=== PATIENT | female | born 1980 | race African-American/Black ===

== ENCOUNTER → 2017-12-16 | Outpatient (CLI) | payer OTHER | LOC: ULTRA 09:36 | DX: N83.202 Unspecified ovarian cyst, left side (principal); N83.201 Unspecified ovarian cyst, right side; N93.9 Abnormal uterine and vaginal bleeding, unspecified ==

== ENCOUNTER → 2018-08-19 | Outpatient (CLI) | payer OTHER | LOC: RAD 14:10 | DX: R92.2 Inconclusive mammogram (principal); Z80.3 Family history of malignant neoplasm of breast ==

== ENCOUNTER → 2018-09-16 | Outpatient (CLI) | payer OTHER | LOC: RAD 15:41 | DX: M53.3 Sacrococcygeal disorders, not elsewhere classified (principal); M54.5 Low back pain; W19.XXXA Unspecified fall, initial encounter ==

== ENCOUNTER 2019-06-09 06:58 | Day surgery (SDC) | payer OTHER ==
[~2019-06-09] VITALS: Ht 157.5 cm; Wt 72.6 kg
--- NOTE | ~2019-06-09 | O ---
[facility] [place] [address] OPERATIVE REPORT Name: AMALIA MALONE Nicole Room #: DEP [facility].#: [id number] Admission: 06/09/19 ������������������ Attend Phys: Sherry Quiroga, Discharge: 06/09/19 ������������������ Date of : 80 Report #: [id number] THIS REPORT FOR: //name// CC: Napoleon Quiroga DATE OF SERVICE: 06/09/2019 PREOPERATIVE DIAGNOSES: 1. Menorrhagia. 2. Dysmenorrhea. 3. Pelvic pain. POSTOPERATIVE DIAGNOSES: 1. Menorrhagia. 2. Dysmenorrhea. 3. Pelvic pain. 4. Left ovarian cyst. 5. Abdominal pelvic adhesions. OPERATIVE PROCEDURE: Diagnostic laparoscopy. COMPLICATIONS: None. ANESTHESIA: General. PATHOLOGY: None. DESCRIPTION OF PROCEDURE: The patient was taken to the operating room where general anesthesia was administered and found to be adequate. She was then prepped and draped in normal sterile fashion in dorsal lithotomy position. A weighted speculum was placed in the patient's vagina. The anterior lip of the cervix was identified and grasped with a single tooth tenaculum. The uterus was then gently dilated to approximately 9 cm. The VCare uterine manipulator was then passed through the cervix, gently advanced into the uterus and the balloon was inflated. The single tooth tenaculum was removed from the patient's cervix and the VCare cup was fashioned and placed over the cervix. The weighted speculum was then removed from the patient's vagina. Sterile gloves were changed and attention was then turned to the patient's abdomen. A 5 mm infraumbilical incision was made with a scalpel. A 5 mm trocar was passed through this incision under direct visualization of laparoscope. No insertional trauma was identified. A pneumoperitoneum was allowed to accumulate using carbon dioxide gas. Once approximately 3 liters of carbon dioxide gas was infused, the patient was then placed in Trendelenburg position. Survey of the patient's abdomen revealed omental adhesions to the left pelvic and abdominal sidewall. There was a window to the right where a 5 mm incision was made with a [facility] [address] [place] [address] OPERATIVE REPORT Name: AMALIA MALONE Room #: DEP [facility].#: [id number] Admission: 06/09/19 ������������������ Attend Phys: Sherry Quiroga DO Discharge: 06/09/19 ������������������ Date of : 80 Report #: [id number] scalpel in the left lower quadrant of the patient's abdomen. The 5 mm trocar was passed through this incision under direct visualization of laparoscope. No insertional trauma was identified. Further assessment of the patient's pelvis revealed a left ovarian cyst as well as thick omental adhesions to the vesicouterine peritoneum and bladder on the anterior aspect of the uterus as well as bladder adhesions on the anterior aspect of the uterus. Due to the abdominal and pelvic adhesions, it was decided at this time to discuss with the patient's family the possibility of an open procedure. Therefore, at this time, I exited the operating room to discuss findings with the family. The family agreed to not proceed with an abdominal hysterectomy, but rather abort procedure and discuss future treatment with the patient. Therefore, I reentered the operating room and the pneumoperitoneum was allowed to escape after all instruments were removed from the patient's abdomen. Trocars were removed under direct visualization of laparoscope and incisions were then closed with 4-0 Monocryl. Excellent hemostasis was noted of the incision sites. All instrumentation was removed from the patient's vagina. The patient tolerated the procedure well. Sponge, lap and needle counts were reported as correct. The patient was taken to the recovery room in stable condition. ��������������������������������������������� ���������������������������������������� By: ��������������������������������������������� [id number] Sherry Quiroga DO /nt
[~2019-06-09 06:58] MED LIST: ABILIFY 5 MG TAB5 MG PO; ACETAMINOPHEN-1 EAC1 PO; ADDERALL 20 MG20 MG PO; ALBUTEROL2.5 MG/31 INH; AMBIEN 5 MG TABL5 M1 PO; BREO ELLIPTA 11 EACH INH; BRINTELLIX10 MG PO; EMERGEN-C 1,01000 MG PO; FISH OIL 1,001000 M2 PO; PREDNISONE 10 M10 MG PO; SUMATRIPTA4 MG/0.51 SUBQ; TOPAMAX 100 MG100 MG PO; VENTOLIN HFA 1818 GM INH; VITAMIN E400 UNIT PO; XANAX 0.5 MG0.5 MG PO
[2019-06-09 08:09] LABS: HEMOGLOBIN 12.7 gm/dL (12.0-15.0); MCH 28.8 pg (26.0-34.0); MCHC 32.6 g/dL (28.0-37.0); MCV 88.4 fL (80.0-100.0); RBC 4.41 mil/uL (4.20-5.00); RDW 15.1 % (10.5-14.5); WBC 6.4 thou/uL (4.0-11.0)
[2019-06-09 09:39] VITALS: BP 119/70
[2019-06-09] MEDS ORDERED: NORCO 5-325 TA1 EAC1 PO (11:06)
[2019-06-09 11:50] VITALS: BP 119/70
== END 2019-06-09 13:32 | disposition home or self-care (01) ==
LOC: OR 06:58 → TBA 07:22 → OR 09:31
PROVIDERS: Obstetrics & Gynecology
DX: N83.202 Unspecified ovarian cyst, left side (principal); N80.9 Endometriosis, unspecified; N73.6 Female pelvic peritoneal adhesions (postinfective); N94.6 Dysmenorrhea, unspecified; N92.0 Excessive and frequent menstruation with regular cycle; G43.909 Migraine, unspecified, not intractable, without status migrainosus; J45.909 Unspecified asthma, uncomplicated; Z87.891 Personal history of nicotine dependence; K21.9 Gastro-esophageal reflux disease without esophagitis; Z98.890 Other specified postprocedural states; Z98.51 Tubal ligation status; Z79.899 Other long term (current) drug therapy; Z88.0 Allergy status to penicillin; Z88.8 Allergy status to other drugs, medicaments and biological substances; Z79.891 Long term (current) use of opiate analgesic
CPT/HCPCS: 50010; 50101; 50249; 50386; 50400; 50455; 50555; 50900; 51489; 51687; 52265; 52287; 53307; 54118; 56525; 56526; 62110; 62900; 70005

== ENCOUNTER 2019-06-16 10:42 | Inpatient (IN) | payer OTHER ==
[~2019-06-16] VITALS: Ht 157.5 cm; Wt 70.3 kg
[2019-06-16] VITALS (9 sets, daily range): BP systolic 97–135; BP diastolic 64–76
--- NOTE | ~2019-06-16 | O ---
[facility] [place] [address] [place] [address] OPERATIVE REPORT Name: AMALIA MALONE Nicole Room #: 417-I [facility] IN ..#: [id number] Admission: 06/16/19 Attend Phys: Sherry Quiroga DO Discharge: 06/18/19 Date of : 80 Report #: [id number] THIS REPORT FOR: //name// CC: Napoleon Quiroga DATE OF SERVICE: 06/16/2019 PREOPERATIVE DIAGNOSES: 1. Menorrhagia. 2. Dysmenorrhea. 3. Pelvic pain. 4. Left ovarian cyst. 5. Abdominal pelvic adhesions. POSTOPERATIVE DIAGNOSES: 1. Menorrhagia. 2. Dysmenorrhea. 3. Pelvic pain. 4. Left ovarian cyst. 5. Abdominal pelvic adhesions. OPERATIVE PROCEDURES: Total abdominal hysterectomy with left salpingo-oophorectomy and lysis of adhesions. SURGEON: Sherry Quiroga DO MANAGER MOUNTAIN: Maggie Caba MD ANESTHESIA: General. PATHOLOGY: Uterus with cervix, left fallopian tube and ovary. COMPLICATIONS: None. DESCRIPTION OF PROCEDURE: The patient was taken to the operating room where general anesthesia was administered and found to be adequate. She was then prepped and draped in normal sterile fashion in supine position. A Pfannenstiel skin incision was made in the patient's abdomen approximately 2 cm above the symphysis pubis through her prior incision and carried through to the underlying layer of fascia. The fascia was nicked in the midline. The incision was carried laterally with Dela Cruz scissors. The superior aspect of the fascial incision was grasped with Kendrick clamps, elevated and the underlying rectus muscle dissected off bluntly as well as with Dela Cruz scissors. Attention was then turned to the inferior aspect of this incision, which in a similar fashion was grasped with Kendrick clamps, elevated and the underlying rectus muscle dissected [facility] [address] [place] [address] OPERATIVE REPORT Name: AMALIA MALONE Room #: 417-I [facility] IN [facility]#: [id number] Admission: 06/16/19 Attend Phys: Sherry Quiroga DO Discharge: 06/18/19 Date of : 80 Report #: [id number] off bluntly as well as with Dela Cruz scissors. The rectus muscles were in the midline. The peritoneum was tented upwards and entered sharply with Metzenbaum scissors. The peritoneal incision was then extended superiorly and inferiorly with good visualization. Omental adhesions on the left abdominal sidewall were then lysed using the handheld LigaSure, followed by adhesions to the anterior aspect of the uterus as well as the vesicouterine peritoneum. Excellent hemostasis was noted after lysis of all adhesions. The Marcus retractor was then placed in the patient's abdomen and the bladder blade was placed and attached to the Marcus. Survey the patient's abdomen revealed a normal appearing uterus, normal appearing right ovary, fallopian tubes that had previously been transected by tubal ligation, left ovary with an ovarian cyst and possibly small amount of endometriosis implant on the left fallopian tube remnant near the cornua of the uterus. The right ovary was then retracted to the lateral aspect of the pelvis and the uteroovarian ligament followed by the round ligament were transected without complication. Next, the broad ligament was transected and the vesicouterine peritoneum identified, tented upwards and the bladder reflection was created from the right aspect of the pelvis across to the central part of the uterus. Attention was then turned to the patient's left pelvis where the infundibulopelvic ligament was transected after retracting the fallopian tube and ovary medially. This was followed by the transection of the round ligament as well as the left broad ligament. Again, the vesicouterine peritoneum was identified, tented upwards and undermined with Metzenbaum scissors and transected. The bladder was then bluntly as well as sharply dissected off the anterior aspect of the uterus until the cervix was visualized. The uterine arteries and cardinal ligament complexes were then clamped with straight Heaneys, transected and tied with 2-0 Vicryl. Z-clamps were then placed across the remainder of the cervical pedicle and at the cervicovaginal junction. The cervicovaginal junction was then transected across the top of the Heaneys. The vaginal cuff was then tied with 3 interrupted sutures using 0 Vicryl. Excellent hemostasis was noted of the vaginal cuff ____ the posterior aspect of the bladder ____. Bovie cautery was used as well as the Heather to obtain excellent hemostasis. Again, all pedicles were noted to be hemostatic. The ____ as well as the fascia were then closed by Dr. Caba and the subcutaneous tissue was then reapproximated using 3-0 plain and the skin was closed in a subcuticular stitch using 4-0 Monocryl. The patient tolerated the procedure well. Sponge, lap and needle counts were reported as correct and the patient was taken to the recovery room in stable condition. By: [id number] Sherry Quiroga DO /nt
[~2019-06-16 10:42] MED LIST changes: +NORCO 5-325 TA1 EAC1 PO
[2019-06-16 11:16] LABS: URINE BILIRUBIN NEGATIVE (Negative); URINE BLOOD TRACE (Negative); URINE CLARITY CLEAR; URINE COLOR YELLOW; URINE GLUCOSE-RANDOM* NEGATIVE (Negative); URINE KETONES NEGATIVE (Negative); URINE LEUKOCYTES NEGATIVE (Negative); URINE NITRITE NEGATIVE (Negative); URINE PROTEIN (DIPSTICK) NEGATIVE (Negative); URINE SPECIFIC GRAVITY 1.015 (1.005-1.035); URINE UROBILINOGEN 0.2 E.U./dl (0.2-1.0)
[2019-06-16 11:22] LABS: CREATININE 0.8 mg/dL (0.6-1.0)
[2019-06-17 00:11] VITALS: BP 119/67
[2019-06-17 03:40] VITALS: BP 114/60
[2019-06-17 05:54] LABS: HEMATOCRIT 37.1 % (37.0-47.0); HEMOGLOBIN 12.3 gm/dL (12.0-15.0); MCH 29.2 pg (26.0-34.0); MCHC 33.3 g/dL (28.0-37.0); MCV 87.7 fL (80.0-100.0); RBC 4.23 mil/uL (4.20-5.00); RDW 15.3 % (10.5-14.5); WBC 14.6 thou/uL (4.0-11.0)
[2019-06-17 06:01] LABS: CALCIUM 8.5 mg/dL (8.5-10.1); CREATININE 0.7 mg/dL (0.6-1.0); POTASSIUM 4.3 mmol/L (3.5-5.1)
[2019-06-17 08:20] VITALS: BP 124/64
[2019-06-17 18:07] VITALS: BP 126/74
[2019-06-17 20:30] VITALS: BP 112/70
[2019-06-18 03:28] VITALS: BP 175/74
[2019-06-18 03:37] VITALS: BP 117/74
[2019-06-18 09:51] VITALS: BP 109/61
[2019-06-18] MEDS ORDERED: HYDROCODON-ACE1 EAC7 PO (10:42)
[2019-06-18 11:34] VITALS: BP 109/61
--- NOTE | 2019-06-19 11:07 | PATH ---
[facility] [place] [address] PATHOLOGY RPT PROCEDURE Name: AMALIA PADILLA Nicole Room #: 417-I [facility] IN .R.#: [id number] Admission: 06/16/19 Date of : 80 Discharge: 06/18/19 Report #: [id number] Path Case #: [id number] LCA Accession Number: [id number] . 01 Material submitted: . uterus - UTERUS WITH CERVIX AND LEFT TUBE AND OVARY . 01 Clinical history: . Dysfunctional uterine bleeding, dysmenorrhea . 02 Diagnosis: Uterus and left ovary and fallopian tube, hysterectomy and left salpingo-oophorectomy: - Cervix with mild chronic inflammation and squamous metaplasia. - Secretory phase endometrium. - Myometrium with leiomyomata, up to 0.8 cm. - Serosal surface with no pathologic diagnosis. - Left ovary with hemorrhagic corpus luteum cyst. - Left fallopian tube and right fallopian tube stump with no significant histopathologic diagnosis. (CORDELL:milagros; 06/19/2019) QMS/06/19/2019 . 02 Electronically signed: . Larry Houston MD, Pathologist NPI- [id number] . 01 Gross description: . The specimen is received in formalin, labeled "Amalia Padilla, uterus with cervix and left tube and ovary" and consists of a 67 g uterus with attached cervix measuring 8.3 x 4.8 x 3.4 cm. Attached is the right fallopian tube stump, nonfimbriated, measuring 2.0 cm in length and 0.5 cm in diameter. Also attached is the left tubo-ovarian complex consisting of a fimbriated fallopian tube (4.5 cm in length and up to 0.5 cm in diameter) attached to a 10 g ovary (3.8 x 2.9 x 1.7 cm). The uterine serosa is lindsay-brown with hemorrhage and attached yellow adipose tissue on the anterior aspect (3.5 x 2.3 cm). The slitlike 0.6 cm cervical os is surrounded by pink-lindsay cervical tissue, however mucosa grossly appears absent. It is bivalved revealing a corrugated endocervical canal measuring 3.5 cm in length. Endometrial cavity is triangular measuring 3.8 cm in length and up to 2.6 cm in width which is lined by a red-pink endometrium measuring 0.1-0.2 cm. The myometrium is pink-lindsay measuring up to 2.0 cm with a few anterior and posterior subserosal and intramural nodules measuring up to 0.8 cm. These nodules show homogeneous white whorled cut surfaces without hemorrhage, necrosis, or calcifications. No additional masses or lesions are identified. . [address] [address] PATHOLOGY RPT PROCEDURE Name: AMALIA PADILLA N Room #: 417-I [facility] IN ..#: [id number] Admission: 06/16/19 Date of : 80 Discharge: 06/18/19 Report #: [id number] Path Case #: [id number] Both fallopian tube segments are purple-bliss with sectioning revealing a well-defined lumen and no gross lesions. The left fallopian tube shows evidence of a previous ligation. The left ovary is cerebriform lindsay-brown and hemorrhagic. Sectioning reveals a hemorrhagic luteum as well as a few fluid-filled unilocular cysts which measure up to 0.5 cm. Guidance Secretary sections are submitted as follows: . A1: Anterior cervix A2: Posterior cervix A3: Anterior endomyometrium A4: Posterior endomyometrium A5: Serosa with attached adipose tissue A6: Nodules A7: Right fallopian tube stump A8: Left fallopian tube A9-A10: Left ovary (SDY; 06/17/2019) /SYU . 02 Pathologist provided ICD-10: N72, N87.9, D25.9, N83.12 . 02 CPT . 257595 Specimen Comment: A courtesy copy of this report has been sent to Specimen Comment: [phone], , . Specimen Comment: Report sent to ,DR MAGUIRE / DR DALY Performed at: [address], [place], [place] [id number] MD Carlos Mccray MD Phone: [phone] Performed at: [address] [id number] MD Cynthia Pierce MD Phone: [phone]
== END 2019-06-18 12:01 | disposition home or self-care (01) | DRG 743 ==
LOC: PRE 10:42 → TBA 10:44 → 4E 10:44 → PRE 11:57 → 4E 15:48
PROVIDERS: ADMIT Obstetrics & Gynecology
DX: N92.0 Excessive and frequent menstruation with regular cycle (principal); N94.6 Dysmenorrhea, unspecified; N83.209 Unspecified ovarian cyst, unspecified side; N73.6 Female pelvic peritoneal adhesions (postinfective); Z79.899 Other long term (current) drug therapy; Z88.6 Allergy status to analgesic agent; Z88.0 Allergy status to penicillin; F41.9 Anxiety disorder, unspecified
CPT/HCPCS: 10783; 50010; 50093; 50101; 50386; 52287; 54118; 56524; 56525; 56526; 62110; 62900; 70005

== ENCOUNTER → 2019-09-30 | Outpatient (CLI) | payer OTHER ==
[~2019-09-30] MED LIST changes: +HYDROCODON-ACE1 EAC7 PO
== END ==
LOC: ULTRA 09-22 09:49
DX: R10.9 Unspecified abdominal pain (principal)

== ENCOUNTER 2019-12-01 06:21 | Day surgery (SDC) | payer OTHER ==
[~2019-12-01] VITALS: Ht 157.5 cm; Wt 75.3 kg
--- NOTE | ~2019-12-01 | O ---
[facility] [place] [address] [place] [address] OPERATIVE REPORT Name: AMALIA MALONE Room #: DEP [facility].#: [id number] Admission: 12/01/19 Attend Phys: Sherry Quiroga DO Discharge: 12/01/19 Date of : 80 Report #: [id number] THIS REPORT FOR: cc: Napoleon Rios James A. DO Farris, Kari C. DO ~ CC: Napoleon Quiroga PREOPERATIVE DIAGNOSES: 1. Pelvic pain. 2. NOE-2 of the cervix. POSTOPERATIVE DIAGNOSES: 1. Pelvic pain. 2. NOE-2 of the cervix. OPERATIVE PROCEDURE: Laparoscopic trachelectomy. SURGEON: Dr. Sherry Quiroga. ANESTHESIA: General. INTRAVENOUS FLUIDS: 1200 mL. URINE OUTPUT: 100 mL. ESTIMATED BLOOD LOSS: 20 mL. COMPLICATIONS: None. DESCRIPTION OF PROCEDURE: The patient was taken to the operating room where general anesthesia was administered and found to be adequate. She was then prepped and draped in normal sterile fashion in dorsal lithotomy position. A weighted speculum was placed in the patient's vagina. The anterior lip of the cervix was identified and grasped with single tooth tenaculum. The VCare uterine manipulator was placed into the cervix. The balloon was inflated slightly and the VCare cup was placed over the cervix and fashioned in place after the single tooth tenaculum was removed from the patient's cervix. The weighted speculum was removed from the patient's vagina. A Hummel catheter was placed in the patient's bladder and the bladder was drained of urine. Sterile gloves were changed and attention was then turned to the patient's abdomen. A 5 mm infraumbilical incision was made with scalpel. A 5 mm trocar was passed through this incision under direct visualization of laparoscope. No insertional trauma was identified. The pneumoperitoneum was allowed to accumulate using carbon dioxide gas, was approximately 2 liters of carbon dioxide gas was infused. The patient was placed in Trendelenburg position. [facility] [address] [place] [address] OPERATIVE REPORT Name: MALONEAMALIA Room #: DEP [facility]..#: [id number] Admission: 12/01/19 Attend Phys: Sherry Quiroga DO Discharge: 12/01/19 Date of : 80 Report #: [id number] pneumoperitoneum was accumulating fluid, the patient was placed in Trendelenburg and a second incision was placed in the patient's left lower quadrant with a scalpel. An 11 mm trocar was placed through this incision under direct visualization of the laparoscope and no insertional trauma was identified. A survey of the patient's abdomen revealed slight tethering of the appendix to the abdominal side wall and the right ovarian cyst. The ovarian cyst was aspirated until clear fluid was noted and the adhesion of the appendix was released with Sonicision device. Excellent hemostasis was noted. Attention was then turned to the patient's cervix, where the vesicouterine peritoneum was identified and dissected with laparoscopic Kitner off the cervix. Once this was performed, a colpotomy was performed around the VCare cup and the cervix was delivered vaginally. Excellent hemostasis was noted. After the cervix was delivered into the vagina and excellent hemostasis was noted, using an EndoStitch, a series of interrupted stitches of 0 Vicryl were placed to reapproximate the anterior and posterior vaginal mucosa as well as the anterior and posterior pelvic peritoneum. Excellent hemostasis was noted of the vaginal cuff. The pelvis was irrigated. All irrigant was removed. The pneumoperitoneum was allowed to escape and all trocars were removed from the patient's abdomen. The fascia of the 11 mm port was closed with 0 Vicryl and the skin was closed in subcuticular stitch using 4-0 Vicryl. The patient tolerated the procedure well. Sponge, lap and needle counts were reported as correct. The specimen was removed from the patient's vagina. The vaginal cuff was noted to be hemostatic vaginally. The patient was taken to the recovery room in stable condition. By: 1155 1224 Sherry Quiroga DO /mitchell
[~2019-12-01 06:21] MED LIST changes: +DEPAKOTE250 MG PO
[2019-12-01 06:38] VITALS: BP 112/69
[2019-12-01] MEDS ORDERED: NORCO 5-325 TA1 EAC1 PO (10:18)
[2019-12-01 10:42] VITALS: BP 112/69
--- NOTE | 2019-12-03 13:08 | PATH ---
[facility] [address] [place] [address] PATHOLOGY RPT PROCEDURE Name: AMALIA PADILLA Room #: DE[facility] [place].#: [id number] Admission: 12/01/19 Date of : 80 Discharge: 12/01/19 Report #: [id number] Path Case #: [id number] LCA Accession Number: [id number] . 01 Material submitted: . cervix - PORTION OF THE CERVIX . 01 Clinical history: . Right lower abdominal pain . 02 Diagnosis: Cervix "portion of cervix, excision": - Mild chronic cervicitis with reactive squamous epithelial hyperplasia with hyperkeratosis and parakeratosis. - There is no evidence of atypia or malignancy. . (SHA:milagros; 12/03/2019) QMS 12/03/2019 0856 Local . 02 Electronically signed: . Kwan Mcgill MD, Pathologist NPI- [id number] . 01 Gross description: . The specimen is received in formalin, labeled "Amalia Padilla, portion of the cervix". Received is a 10 g cervical stump measuring 3.2 x 2.5 x 2.7 cm in greatest dimensions. There is a slight amount of attached vaginal mucosa present measuring 2.0 x 1.1 cm. The 0.7 cm cervical os is surrounded by pink-lindsay, smooth ectocervical mucosa. The specimen cannot be oriented. The specimen is opened to reveal a pale lindsay, smooth endocervical canal measuring 1.4 cm in length which appears to be septated at the superior aspect and cannot be probed. Copywriting Intern sections from the 12:00 and 6:00 aspects are submitted in cassettes A1 and A2. (CAA; 12/01/2019) QAC/QAC 12/01/2019 1811 Local . 02 Pathologist provided ICD-10: N72 . 02 CPT . 954840 Specimen Comment: A courtesy copy of this report has been sent to [phone] Specimen Comment: [phone] Specimen Comment: Report sent to DR DALY Performed at: 01 [place] [address] PATHOLOGY RPT PROCEDURE Name: AMALIA PADILLA Nicole Room #: [facility] [place].R.#: [id number] Admission: 12/01/19 Date of : 80 Discharge: 12/01/19 Report #: [id number] Path Case #: [id number] [address] [facility] [address], [place] [id number] MD Carlos Mccray MD Phone: [phone] Performed at: [address] [id number] MD Cynthia Pierce MD Phone: [phone]
== END 2019-12-01 11:30 | disposition home or self-care (01) ==
LOC: OR 06:21 → TBA 06:21 → OR 06:51
DX: N72 Inflammatory disease of cervix uteri (principal); N83.201 Unspecified ovarian cyst, right side; N87.1 Moderate cervical dysplasia; R10.2 Pelvic and perineal pain; N73.6 Female pelvic peritoneal adhesions (postinfective); J45.909 Unspecified asthma, uncomplicated; G43.909 Migraine, unspecified, not intractable, without status migrainosus; F32.9 Major depressive disorder, single episode, unspecified; F41.9 Anxiety disorder, unspecified; K21.9 Gastro-esophageal reflux disease without esophagitis; Z98.890 Other specified postprocedural states; Z79.899 Other long term (current) drug therapy; Z87.891 Personal history of nicotine dependence; Z98.51 Tubal ligation status; Z88.0 Allergy status to penicillin; Z88.8 Allergy status to other drugs, medicaments and biological substances
CPT/HCPCS: 50010; 50101; 50249; 50386; 50400; 50455; 50555; 50558; 50685; 50900; 50962; 51489; 51687; 52265; 52287; 53307; 54022; 54118; 55326; 56462; 56525; 56526; 56531; 62110; 62900; 70005

== ENCOUNTER → 2019-12-12 | Day surgery (SDC) | payer OTHER ==
[~2019-12-12] MED LIST changes: +NAPROSYN500 MG PO
--- NOTE | ~2019-12-12 | O ---
[facility] [place] [address] [place] [address] OPERATIVE REPORT Name: AMALIA MALONE Room #: REG [facility]..#: [id number] Admission: 12/12/19 Attend Phys: Sherry Quiroga DO Discharge: Date of : 80 Report #: [id number] THIS REPORT FOR: cc: Napoleon Rios James A. DO Farris, Kari C. DO ~ CC: Napoleon Quiroga DATE OF SERVICE: 12/12/2019 PREOPERATIVE DIAGNOSIS: Dehiscence of the vaginal cuff. POSTOPERATIVE DIAGNOSIS: Dehiscence of the vaginal cuff. OPERATIVE PROCEDURE: Revision and repair of vaginal cuff. SURGEON: Dr. Sherry Quiroga. ANESTHESIA: General. INTRAVENOUS FLUIDS: 400 mL URINE OUTPUT: 20 mL. ESTIMATED BLOOD LOSS: 5 mL. COMPLICATIONS: None. OPERATIVE FINDINGS: The vaginal cuff mucosa with pelvic peritoneum intact. DESCRIPTION OF PROCEDURE: The patient was taken to the operating room where general anesthesia was administered and found to be adequate. She was then prepped and draped in normal sterile fashion in dorsal lithotomy position. A red rubber catheter was and placed in the bladder. The bladder was drained of urine. A weighted speculum was placed in the patient's vagina and it was noted that the vaginal mucosa was disrupted at the level of the vaginal cuff. It was also noted the suture was in place and the pelvic peritoneum was intact throughout or across the entirety of the vaginal cuff. The anterior aspect of the vaginal cuff was grasped with an Allis clamp and using an 8-0 Vicryl, the vaginal mucosa was reapproximated in a running locked fashion. Excellent hemostasis was noted at the vaginal cuff. The vaginal area was copiously irrigated. All the irrigant was removed. Again, upon further inspection, hemostasis was noted. Speculum was removed from the patient's vagina. [facility], [facility] [address] [place] [address] OPERATIVE REPORT Name: MALONEAMALIA Nicole Room #: REG [facility].#: [id number] Admission: 12/12/19 Attend Phys: Sherry Quiroga DO Discharge: Date of : 80 Report #: [id number] lap and needle counts were reported as correct and the patient was taken to the recovery room in stable condition. By: 0944 1014 Sherry Quiroga DO /nt
[2019-12-12 07:50] LABS: HEMATOCRIT 38.6 % (37.0-47.0); HEMOGLOBIN 12.3 gm/dL (12.0-15.0); MCH 28.3 pg (26.0-34.0); MCHC 31.9 g/dL (28.0-37.0); MCV 88.7 fL (80.0-100.0); RBC 4.35 mil/uL (4.20-5.00); RDW 14.2 % (10.5-14.5); WBC 7.6 thou/uL (4.0-11.0)
== END | disposition home or self-care (01) ==
LOC: OR 07:24
PROVIDERS: Obstetrics & Gynecology
DX: N89.8 Other specified noninflammatory disorders of vagina (principal); R10.2 Pelvic and perineal pain; J45.909 Unspecified asthma, uncomplicated; G43.909 Migraine, unspecified, not intractable, without status migrainosus; K21.9 Gastro-esophageal reflux disease without esophagitis; F32.9 Major depressive disorder, single episode, unspecified; F41.9 Anxiety disorder, unspecified; F17.210 Nicotine dependence, cigarettes, uncomplicated; Z98.890 Other specified postprocedural states; Z79.899 Other long term (current) drug therapy; Z98.51 Tubal ligation status; Z90.710 Acquired absence of both cervix and uterus; Z88.0 Allergy status to penicillin; Z79.891 Long term (current) use of opiate analgesic; Z88.8 Allergy status to other drugs, medicaments and biological substances
CPT/HCPCS: 50010; 50101; 56524; 62110; 62900; 70005

== ENCOUNTER → 2020-05-10 | Outpatient (CLI) | payer OTHER | LOC: RAD 16:09 | PROVIDERS: ATTEND Family Medicine | DX: Z12.31 Encounter for screening mammogram for malignant neoplasm of breast (principal) ==

== ENCOUNTER → 2020-07-04 | Outpatient (CLI) | payer OTHER | LOC: MRI 06-21 10:18 | PROVIDERS: ATTEND Orthopaedic Surgery | DX: M47.817 Spondylosis without myelopathy or radiculopathy, lumbosacral region (principal); N83.201 Unspecified ovarian cyst, right side ==

== ENCOUNTER → 2020-07-19 | Outpatient (CLI) | payer OTHER ==
[2020-07-19 16:46] LABS: ABSOLUTE NEUTROPHILS 4.2 thou/uL (1.4-8.2); BASOPHILS 1.1 % (0.0-2.0); EOSINOPHILS 1.2 % (0.0-3.0); HEMATOCRIT 41.7 % (37.0-47.0); HEMOGLOBIN 13.6 gm/dL (12.0-15.0); LYMPHOCYTES 27.8 % (24.0-44.0); MCH 28.9 pg (26.0-34.0); MCHC 32.5 g/dL (28.0-37.0); MCV 88.7 fL (80.0-100.0); MONOCYTES 6.2 % (1.0-8.0); PLATELET COUNT 182 thou/uL (150-400); POLYS 63.7 % (36.0-66.0); RDW 14.2 % (10.5-14.5); WBC 6.5 thou/uL (4.0-11.0)
[2020-07-19 16:47] LABS: URINE BILIRUBIN 1+ (Negative); URINE BLOOD NEGATIVE (Negative); URINE COLOR YELLOW; URINE GLUCOSE-RANDOM* NEGATIVE (Negative); URINE KETONES TRACE (Negative); URINE LEUKOCYTES-REFLEX NEGATIVE (Negative); URINE NITRITE-REFLEX NEGATIVE (Negative); URINE PROTEIN (DIPSTICK) NEGATIVE (Negative); URINE SPECIFIC GRAVITY 1.015 (1.005-1.035)
[2020-07-19 16:48] LABS: ICTOTEST (BILI CONFIRMATORY) Positive (Negative); URINE CLARITY CLOUDY
[2020-07-19 17:03] LABS: ANION GAP 10 mmol/L (7-16); BUN 12 mg/dL (7-18); CALCIUM 8.8 mg/dL (8.5-10.1); CHLORIDE 104 mmol/L (98-107); CHOLESTEROL 210 mg/dL (<200); CO2 26 mmol/L (21-32); GLUCOSE 87 mg/dL (74-106); HDL CHOLESTEROL 76 mg/dL (>40); LDL CHOLESTEROL 126 mg/dL (<100); POTASSIUM 3.8 mmol/L (3.5-5.1); SGOT 13 U/L (15-37); SGPT 20 U/L (30-65); SODIUM 140 mmol/L (136-145); TC:HDL 2.8 Ratio (Not establshd); TOTAL BILIRUBIN 0.2 mg/dL (0.2-1.0); TOTAL PROTEIN 7.4 g/dL (6.4-8.2); TRIGLYCERIDE 43 mg/dL (<150); VLDL 9 mg/dL (<40)
== END ==
LOC: LABMALL 15:46
PROVIDERS: ATTEND Nurse Practitioner
DX: Z00.00 Encounter for general adult medical examination without abnormal findings (principal)

== ENCOUNTER → 2020-08-19 | Outpatient (CLI) | payer OTHER | LOC: LAB 07:56 | PROVIDERS: ATTEND Anesthesiology | DX: Z01.812 Encounter for preprocedural laboratory examination (principal); Z20.828 Contact with and (suspected) exposure to other viral communicable diseases ==

== ENCOUNTER → 2020-11-02 | Outpatient (CLI) | payer OTHER | LOC: ULTRA 12:54 | PROVIDERS: ATTEND Nurse Practitioner | DX: N83.201 Unspecified ovarian cyst, right side (principal); N94.89 Other specified conditions associated with female genital organs and menstrual cycle; Z90.721 Acquired absence of ovaries, unilateral ==

== ENCOUNTER → 2020-11-03 | Outpatient (CLI) | payer OTHER | LOC: LAB 08:05 | PROVIDERS: ATTEND Family Medicine | DX: N83.8 Other noninflammatory disorders of ovary, fallopian tube and broad ligament (principal) ==